=== PATIENT | male | born 1945 | race Hispanic/Latino ===

== ENCOUNTER 2020-11-22 07:08 | Day surgery (SDC) | payer BC ==
[2020-11-22] MEDS ORDERED: SODIUM CHLORIDE 0.9% 500 ML 500 ML IV SCH (08:00)
[2020-11-22] MEDS ORDERED: ASPIRIN EC 325 MG TAB PO SCH (08:00)
[2020-11-22 08:37] LABS: Basophils # (Auto) 0.1 K/mm3 (0.0-0.1); Eosinophils # (Auto) 0.5 K/mm3 (0.0-0.4); Eosinophils % (Auto) 8.7 % (0.0-4.3); Hematocrit 39.7 % (35.5-45.6); Hemoglobin 13.1 gm/dl (11.8-15.2); Lymphocytes # (Auto) 0.6 K/mm3 (1.2-5.4); Lymphocytes % (Auto) 11.1 % (13.4-35.0); Mean Corpuscular HGB Conc 33 % (32-34); Mean Corpuscular Volume 89 fl (84-94); Monocytes # (Auto) 0.6 K/mm3 (0.0-0.8); Monocytes % (Auto) 10.2 % (0.0-7.3); Platelet Count 181 K/mm3 (140-440); Red Blood Count 4.44 M/mm3 (3.65-5.03)
[2020-11-22] MEDS ORDERED: HEPARIN 10,000 UNITS/10 ML VIAL ONE (08:39)
[2020-11-22] MEDS ORDERED: MIDAZOLAM 2 MG/2 ML INJ ONE (08:39)
[2020-11-22] MEDS ORDERED: HEPARIN/NS 5000 UNIT/500ML 1,000 ML IR ONE (08:39)
[2020-11-22] MEDS ORDERED: fentaNYL 100 MCG/2 ML INJ ONE (08:40)
[2020-11-22] MEDS ORDERED: LIDOCAINE (2%) 20 MG/1 ML VIAL 20 ML MDV INFILTRATI ONE (08:40)
[2020-11-22 08:48] LABS: INR 1.12 (0.87-1.13); Partial Thromboplastin Time 29.3 Sec. (24.2-36.6)
[2020-11-22 08:50] LABS: Blood Urea Nitrogen 10 mg/dL (9-20); Hemolysis Index 6
[2020-11-22 08:59] LABS: BUN/Creatinine Ratio 14; Red Cell Distribution Width 23.5 % (13.2-15.2)
[2020-11-22] MEDS ORDERED: diphenhydrAMINE 50 MG/ML VIAL ONE (09:26)
[2020-11-22] MEDS ORDERED: FUROSEMIDE 40 MG/4 ML INJ ONE (10:20)
--- NOTE | 2020-11-22 10:29 | Short Stay Summary ---
Short Stay Documentation Date of service: 11/22/20 - History H&P: obtained from office - Allergies and Medications Current Medications: Allergies latex Allergy (Verified 11/22/20 07:46) Unknown Penicillins Allergy (Verified 11/22/20 07:46) Swelling Home Medications Medication Instructions Recorded Confirmed Last Taken Type Albuterol Sulfate [Proair 90 mcg IH DAILY PRN 11/22/20 11/22/20 11/20/20 History Respiclick] Apixaban [Eliquis] 5 mg PO BID 11/22/20 11/22/20 11/19/20 History Aspirin [[place]] 81 mg PO DAILY 11/22/20 11/22/20 11/21/20 History Furosemide [Lasix TAB] 20 mg PO QDAY 11/22/20 11/22/20 11/21/20 History Iron Fum,Ps/Folic/Bcomp,C No.9 1 each PO DAILY 11/22/20 11/22/20 11/21/20 History [Integra Plus Capsule] Metoprolol [Lopressor TAB] 50 mg PO BID 11/22/20 11/22/20 11/21/20 History Omeprazole 40 mg PO DAILY 11/22/20 11/22/20 11/21/20 History Potassium Chloride [K-Dur] 20 meq PO QDAY 11/22/20 11/22/20 11/21/20 History Pravastatin [Pravachol] 20 mg PO QHS 11/22/20 11/22/20 11/21/20 History Sildenafil Citrate [Viagra] 100 mg PO DAILY 11/22/20 11/22/20 3 Months Ago History ~08/22/20 lisinopriL [Lisinopril] 20 mg PO BID 11/22/20 11/22/20 11/21/20 History Active Medications Hydrocodone Bitart/Acetaminophen (Hydrocodone/Acetaminophen 5-325 Mg Tab) 1 each PO Q4H PRN PRN Reason: Pain, Moderate (4-6) Aspirin (Aspirin Ec 325 Mg Tab) 325 mg PO ONCE@0800 TIARRA Stop: 11/22/20 18:00 Last Admin: 11/22/20 08:45 Dose: 325 mg Documented by: Sodium Chloride (Nacl 0.9% 500 Ml) 500 mls @ 50 mls/hr IV DIRECT TIARRA Stop: 11/22/20 17:59 Last Admin: 11/22/20 09:22 Dose: 50 mls/hr Documented by: Tramadol HCl (Tramadol 50 Mg Tab) 50 mg PO Q4H PRN PRN Reason: Pain, Mild (1-3) - Brief post op/procedure progress note Date of procedure: 11/22/20 Pre-op diagnosis: sob Post-op diagnosis: same (pulmonary htn) Procedure: see report Anesthesia: local Estimated blood loss: minimal Pathology: none - Disposition Condition at discharge: Good Disposition: 01 HOME / SELF CARE / HOMELESS - Discharge Diagnoses (1) CAD (coronary artery disease) of bypass graft Status: Chronic Qualifiers: [place] vs. transplanted heart: [place] heart Associated angina: without angina Qualified Code(s): I25.810 - Atherosclerosis of coronary artery bypass graft(s) without angina pectoris (2) Hypertension Status: Chronic Qualifiers: Hypertension type: primary hypertension Qualified Code(s): I10 - Essential (primary) hypertension (3) Hyperlipemia, mixed Status: Chronic (4) Afib Status: Chronic Qualifiers: Atrial fibrillation type: permanent Qualified Code(s): I48.21 - Permanent atrial fibrillation (5) SOB (shortness of breath) on exertion Status: Chronic (6) Chronic respiratory failure with hypoxia Status: Chronic (7) Pulmonary HTN Status: Acute Short Stay Discharge Plan Activity: advance as tolerated Wound: keep clean and dry Follow up with: BECKY ADAMS MD [Primary Care Provider] - 7 Days
--- NOTE | 2020-11-22 10:46 | Cardiac Catherization Report ---
DATE OF SERVICE: 11/22/2020 CLINICAL INFORMATION: A 75-year-old male with known coronary disease with bypass with patent bypass grafts from last year's catheterization, hypertension, hyperlipidemia, atrial fibrillation, who is having persistent shortness of breath, requiring oxygen with pleural effusions, here for right heart catheterization. Procedure was done with moderate sedation started at 10:00 finished at 10:20, 20 minutes of moderate sedation. DESCRIPTION OF PROCEDURE: Procedure was done via the right brachial vein. A 6-Romansh sheath was placed in and a [place] catheter was placed into the pulmonary artery and following findings so wedge was 25 mmHg. PA was 66/31 mmHg, RV was 66/22 mmHg, RA was 23 mmHg. AO sat was 93%, PA sat 65. RV sat 66. RA sat 67. No step up or step down noted. The patient's PVR is 162. Cardiac output 5.86. Cardiac index 2.87. A [place] catheter taken out, sheath was taken out. No hematoma, no bleeding. SUMMARY: Moderate pulmonary hypertension with wedge of 25-30 mmHg, PA was 66 mmHg, RV was 66 mmHg, RA was 23 mmHg. No step up or step down. Cardiac output 5.86. Cardiac index 2.87. The patient will be treated. Continue medical management. Discussed this with the patient and the patient's roving hauler and family. TID: [id number] RECEIPT: [id number] REESE
--- NOTE | 2020-11-22 10:51 | Electrocardiograph Report ---
[facility] Test Date: 2020-11-22 Test Time: 09:05:36 Pat Name: MATEO BEYER Department: Room: Gender: M Maintenance Scheduler: CAROLE : 1945 Requested By: GONZALO NOLASCO Order Number: [id number] Reading MD: Aaron Buirtago Measurements Intervals [place] Rate: 72 P: RI: QRS: 58 QRSD: 91 T: 69 QT: 395 QTc: 434 Interpretive Statements Atrial fibrillation Anteroseptal infarct, old No previous ECG available for comparison Electronically Signed On 11-22-2020 10:50:50 EDT by Aaron Buitrago
[2020-11-22] MEDS ORDERED: traMADol 50 MG TAB PO PRN (11:00)
[2020-11-22] MEDS ORDERED: HYDROcodone/ACETAMINOPHEN 5-325 MG TAB PO PRN (11:00)
[2020-11-22 12:15] VITALS: BP 153/73
== END 2020-11-22 12:10 | disposition home or self-care (01) ==
LOC: CATHLABREC 07:08
PROVIDERS: ATTEND Internal Medicine
DX: R06.02 Shortness of breath (principal); I27.20 Pulmonary hypertension, unspecified; I25.10 Atherosclerotic heart disease of native coronary artery without angina pectoris; I10 Essential (primary) hypertension; E78.5 Hyperlipidemia, unspecified; I48.91 Unspecified atrial fibrillation; I73.9 Peripheral vascular disease, unspecified; I34.0 Nonrheumatic mitral (valve) insufficiency; G47.33 Obstructive sleep apnea (adult) (pediatric); Z87.891 Personal history of nicotine dependence; Z79.899 Other long term (current) drug therapy; Z88.0 Allergy status to penicillin; Z91.040 Latex allergy status; Z95.1 Presence of aortocoronary bypass graft; Z95.5 Presence of coronary angioplasty implant and graft; Z98.890 Other specified postprocedural states
CPT/HCPCS: 36415; 80048; 85025; 85610; 85730; 93005; 93451; 99156; C1894; J1200; J1644; J1940; J2250; J3010; J7040